=== PATIENT | male | born 1995 | race Caucasian/White ===

== ENCOUNTER 2020-04-08 12:16 | Emergency (ER) | payer OTHER ==
[~2020-04-08] VITALS: Ht 172.7 cm; Wt 86.4 kg
[2020-04-08 13:10] LABS: BASO % 0.1 % (0.0-1.0); EOS # 0.1 10^3/uL (0.0-0.5); EOS % 0.6 % (0.0-3.0); HEMATOCRIT 42.8 % (42.0-52.0); HEMOGLOBIN 14.4 g/dl (13.5-17.5); LYMPH # 2.5 10^3/uL (1.5-5.0); LYMPH % 31.4 % (24.0-44.0); MEAN CORPUSCULAR HEMOGLOBIN 28.2 pg (27.0-33.0); MEAN CORPUSCULAR HGB CONC 33.6 g/dl (32.0-36.5); MEAN CORPUSCULAR VOLUME 83.9 fl (80.0-96.0); MONO # 0.5 10^3/uL (0.0-0.8); MONO % 6.5 % (0.0-5.0); NEUTROPHILS # 4.8 10^3/uL (1.5-8.5); PLATELET COUNT, AUTOMATED 212 10^3/uL (150-450); WHITE BLOOD COUNT 7.8 10^3/uL (4.0-10.0)
[2020-04-08] MEDS ORDERED: ISOVUE-370 76% 100ML VIAL As Ordered ONE (13:11)
[2020-04-08 13:45] LABS: ALT/SGPT 38 U/L (12-78); BILIRUBIN,DIRECT 0.2 MG/DL (0.0-0.2); BILIRUBIN,TOTAL 0.4 MG/DL (0.2-1.0); BLOOD UREA NITROGEN 11 MG/DL (7-18); CALCIUM LEVEL 9.1 MG/DL (8.5-10.1); CARBON DIOXIDE LEVEL 25 MEQ/L (21-32); CHLORIDE LEVEL 108 MEQ/L (98-107); CK-MB VALUE MASS 1.6 NG/ML (<3.6); CPK CREATINE PHOSPHOKINASE 361 U/L (39-308); CREATININE FOR GFR 1.13 MG/DL (0.70-1.30); GLOMERULAR FILTRATION RATE > 60.0 (>60); GLUCOSE, FASTING 92 MG/DL (70-100); MB/CK RELATIVE INDEX 0.44 (< OR =4); NT-PRO BNP 62 PG/ML (<125); POTASSIUM SERUM 3.4 MEQ/L (3.5-5.1); SODIUM LEVEL 139 MEQ/L (136-145); THYROID STIMULATING HORMONE 0.897 uIU/ML (0.358-3.740); THYROXINE (T4) 9.4 UG/DL (4.5-12.0); TOTAL PROTEIN 7.6 GM/DL (6.4-8.2); TROPONIN I 0.09 NG/ML (< 0.10)
--- NOTE | 2020-04-08 14:28 | REPVR ---
PROCEDURE INFORMATION: Exam: CT Angiography Chest With Contrast Exam date and time: 04/08/2020 2:08 PM Age: 24 years old Clinical indication: Chest pain; Type not specified; Additional info: Cp R/O pe TECHNIQUE: Imaging protocol: Computed tomographic angiography of the chest with intravenous contrast. 3D rendering (Not supervised by radiologist): MIP and/or 3D reconstructed images were created by the technologist. Radiation optimization: All CT scans at this facility use at least one of these dose optimization techniques: automated exposure control; mA and/or kV adjustment per patient size (includes targeted exams where dose is matched to clinical indication); or iterative reconstruction. Contrast material: ISOVUE 370; Contrast volume: 75 ml; Contrast route: INTRAVENOUS (IV); COMPARISON: No relevant prior studies available. FINDINGS: Pulmonary arteries: Normal. No pulmonary emboli. Aorta: No aortic aneurysm. No aortic dissection. Thyroid: The partially imaged bilateral thyroid lobes are unremarkable. Lungs: A 5.7 mm noncalcified pulmonary nodule is noted in the posterior segment of the right upper lobe (LOC 19.85). Right middle lobe and left lower lobe calcified pulmonary parenchymal granulomas. Pleural space: No pneumothorax. No pleural effusion. Heart: Normal. No pericardial effusion. Lymph nodes: No enlarged lymph nodes. Bones/joints: Unremarkable. No acute fracture. Soft tissues: Mild left gynecomastia. IMPRESSION: 1. No pulmonary embolism identified. 2. No thoracic aortic aneurysm or dissection identified. 3. Noncalcified right upper lobe pulmonary nodule. Fleischner Society recommendations not given due to patient age less than 35. Electronically signed by: Phillip Castano On 04/08/2020 14:28:23 PM
[2020-04-08 16:25] LABS: CK-MB VALUE MASS 1.4 NG/ML (<3.6); MB/CK RELATIVE INDEX 0.42 (< OR =4); TROPONIN I 0.08 NG/ML (< 0.10)
[2020-04-08 17:15] VITALS: BP 138/80
--- NOTE | 2020-04-10 13:53 | ED PDOC ---
Post-Departure Follow-Up iza faith faxed formal report of cta chest for fu Marcel Lynn MD Apr 10, 2020 13:53
--- NOTE | 2020-04-14 19:07 | ECGEPIP ---
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 RBBB SEE SCANNED DOWNTIME REPORT
--- NOTE | 2020-04-23 13:39 | ECGEPIP ---
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
== END 2020-04-08 17:26 | disposition home or self-care (01) ==
LOC: M ED 12:16
DX: R06.00 Dyspnea, unspecified (principal); R91.1 Solitary pulmonary nodule
CPT/HCPCS: 36415; 71275; 80047; 80048; 80076; 82550; 82553; 83880; 84436; 84443; 84484; 85025; 93005; 93041; 94760; 99284; Q9967

== ENCOUNTER 2021-01-31 12:03 | Emergency (ER) | payer OTHER ==
[~2021-01-31] VITALS: Ht 175.3 cm; Wt 92.6 kg
[2021-01-31] MEDS ORDERED: IBUP200C29 PO (12:11)
[2021-01-31 13:24] LABS: RSV AMPLIFICATION NEGATIVE (NEGATIVE)
[2021-01-31 14:36] LABS: BASO % 0.2 % (0.0-1.0); EOS % 0.2 % (0.0-3.0); HEMATOCRIT 45.9 % (42.0-52.0); HEMOGLOBIN 15.2 g/dl (13.5-17.5); LYMPH # 1.5 10^3/uL (1.5-5.0); LYMPH % 11.5 % (24.0-44.0); MEAN CORPUSCULAR HEMOGLOBIN 28.3 pg (27.0-33.0); MEAN CORPUSCULAR HGB CONC 33.1 g/dl (32.0-36.5); MEAN CORPUSCULAR VOLUME 85.5 fl (80.0-96.0); MONO # 1.4 10^3/uL (0.0-0.8); MONO % 10.5 % (2.0-8.0); NEUTROPHILS # 10.1 10^3/uL (1.5-8.5); NEUTROPHILS % 77.3 % (36.0-66.0); PLATELET COUNT, AUTOMATED 197 10^3/uL (150-450); RED BLOOD COUNT 5.37 10^6/uL (4.30-6.10); WHITE BLOOD COUNT 13.1 10^3/uL (4.0-10.0)
[2021-01-31 15:00] LABS: ALBUMIN 4.1 GM/DL (3.2-5.2); BILIRUBIN,DIRECT 0.4 MG/DL (0.0-0.2); BILIRUBIN,TOTAL 0.9 MG/DL (0.2-1.0); TOTAL PROTEIN 8.3 GM/DL (6.4-8.2)
[2021-01-31] MEDS ORDERED: ACETAMINOPHEN 325 MG TAB PO ONE (15:20)
[2021-01-31] MEDS ORDERED: ONDANSETRON 4MG/2ML VIAL IV ONE (15:50)
[2021-01-31] MEDS ORDERED: NS 1,000 ML IV ONE (15:50)
[2021-01-31 15:53] VITALS: BP 135/75
[2021-01-31 16:05] LABS: ACETAMINOPHEN LEVEL 4.8 UG/ML (10.0-30.0)
--- NOTE | 2021-01-31 16:21 | REP ---
INDICATION: unknown fever COMPARISON: None. TECHNIQUE: PA and lateral. FINDINGS: The mediastinum and cardiac silhouette are normal. The lung rey are clear and without acute consolidation, effusion, or pneumothorax. The skeletal structures are intact and normal. IMPRESSION: No acute cardiopulmonary process. <Electronically signed by Leonidas Alberto > 01/31/21 0851
[2021-01-31] MEDS ORDERED: ZOFR4TAB16 PO (17:12)
== END 2021-01-31 18:13 | disposition home or self-care (01) ==
LOC: M ED 12:03
DX: J02.9 Acute pharyngitis, unspecified (principal); B34.9 Viral infection, unspecified; R51.9 Headache, unspecified; R50.9 Fever, unspecified; F17.220 Nicotine dependence, chewing tobacco, uncomplicated
CPT/HCPCS: 71046; 80047; 80076; 80143; 81001; 85025; 87631; 87880; 96361; 96374; 99284; J2405

== ENCOUNTER 2021-05-22 13:43 | Emergency (ER) | payer OTHER ==
[~2021-05-22] VITALS: Ht 175.3 cm; Wt 96.4 kg
[~2021-05-22 13:43] MED LIST: IBUP200C29 PO; ZOFR4TAB16 PO
--- OUTSIDE RECORDS SUMMARY | 2021-05-22 13:51 | CCD ---
Author Author [facility] Organization [facility] Address Unknown Phone Unavailable Support Name Relationship Address Phone [facility] Next Of Kin [address] [place] [address] Unavailable SIVA FLETCHER Next Of Kin [address] [place], [place] [id number] SIVA FLETCHER [facility] [address] [facility] [address] [address] Unavailable Re-disclosure Warning The records that you are about to access may contain information from federally-assisted alcohol or drug abuse programs. If such information is present, then the following federally mandated warning applies: This information has been disclosed to you from records protected by federal confidentiality rules (42 CFR part 2). The federal rules prohibit you from making any further disclosure of this information unless further disclosure is expressly permitted by the written consent of the person to whom it pertains or as otherwise permitted by 42 CFR part 2. A general authorization for the release of medical or other information is NOT sufficient for this purpose. The Federal rules restrict any use of the information to criminally investigate or prosecute any alcohol or drug abuse patient.The records that you are about to access may contain highly sensitive health information, the redisclosure of which is protected by Article 27-F of the [facility] Public Health law. If you continue you may have access to information: Regarding HIV / AIDS; Provided by facilities licensed or operated by the [facility] Office of Mental Health; or Provided by the [facility] Office for People With Developmental Disabilities. If such information is present, then the following [facility] mandated warning applies: This information has been disclosed to you from confidential records which are protected by state law. State law prohibits you from making any further disclosure of this information without the specific written consent of the person to whom it pertains, or as otherwise permitted by law. Any unauthorized further disclosure in violation of state law may result in a fine or prison sentence or both. A general authorization for the release of medical or other information is NOT sufficient authorization for further disc losure. Immunizations Vaccine Date Status Description Data Source(s) COVID-19 VACCINE Pfizer 11/06/2020 12:00:00 AM EDT completed [facility] Vaccine Series Complete: NOThis Data was Submitted to [facility] Via [employer]. Medications No Information Insurance Providers Payer name Policy type / Coverage type Policy ID Covered libertarian ID Covered libertarian's relationship to thornton Policy Thornton Plan Information [facility] [employer] [id number] Problems, Conditions, and Diagnoses No Information Surgeries/Procedures No Information Results ID Date Data Source [id number] 01/31/2021 12:39:00 PM EDT [facility] Name Value Range Interpretation Code Description Data Renae rce(s) Supporting Document(s) SARS coronavirus 2 RNA [Presence] in Res piratory specimen by RUEL with probe detection NEGATIVE [facility] This lab was ordered by [facility] a nd reported by [facility]. Procedure Social History No Information
[2021-05-22 16:58] LABS: BASO % 0.3 % (0.0-1.0); EOS % 0.3 % (0.0-3.0); HEMATOCRIT 47.6 % (42.0-52.0); HEMOGLOBIN 15.8 g/dl (13.5-17.5); LYMPH # 1.7 10^3/uL (1.5-5.0); LYMPH % 24.7 % (24.0-44.0); MEAN CORPUSCULAR HEMOGLOBIN 28.7 pg (27.0-33.0); MEAN CORPUSCULAR HGB CONC 33.2 g/dl (32.0-36.5); MEAN CORPUSCULAR VOLUME 86.4 fl (80.0-96.0); MONO # 0.9 10^3/uL (0.0-0.8); MONO % 12.4 % (2.0-8.0); NEUTROPHILS # 4.3 10^3/uL (1.5-8.5); NEUTROPHILS % 62.2 % (36.0-66.0); PLATELET COUNT, AUTOMATED 169 10^3/uL (150-450); RED BLOOD COUNT 5.51 10^6/uL (4.30-6.10)
[2021-05-22 17:22] LABS: MONO SCRN NEGATIVE (NEGATIVE)
[2021-05-22] MEDS ORDERED: CEPH500C PO (17:35)
[2021-05-22] MEDS ORDERED: CEPHALEXIN 500 MG CAP PO ONE (17:35)
--- OUTSIDE RECORDS SUMMARY | 2021-05-22 17:45 | CCD ---
Author Author [facility] Organization [facility] Address Unknown Phone Unavailable Support Name Relationship Address Phone [facility] Next Of Kin [address] [place] [address] Unavailable SIVA FLETCHER Next Of Kin [address] [place], [place] [id number] SIVA FLETCHER [facility] [id number] [facility] [address] [place] [address] Unavailable Re-disclosure Warning The records that you [...] is protected by Article 27-F of the [facility] Public Health law. If you continue you may have access to information: Regarding HIV / AIDS; Provided by facilities licensed or operated by the [facility] Office of Mental Health; or Provided by the [facility] Office for People With Developmental Disabilities. If such information is present, then the following [facility] mandated warning applies: This information has [...] law may result in a fine or nursing home sentence or both. A general authorization for the release of medical or other information is NOT sufficient authorization for further disc losure. Immunizations Vaccine Date Status Description Data Source(s) COVID-19 VACCINE Pfizer 11/06/2020 12:00:00 AM EDT completed [facility] Vaccine Series Complete: NOThis Data was Submitted to [facility] Via [employer]. Medications No Information Insurance Providers Payer name Policy type / Coverage type Policy ID Covered alliance party ID Covered alliance party's relationship to thornton Policy [place] Plan Information [facility] [employer] [id number] Problems, Conditions, and Diagnoses No Information Surgeries/Procedures No Information Results ID Date Data Source [id number] 01/31/2021 12:39:00 PM EDT [facility] Name Value Range Interpretation Code Description Data Reane rce(s) Supporting Document(s) SARS coronavirus 2 RNA [Presence] in Res piratory specimen by RUEL with probe detection NEGATIVE [facility] This lab was ordered by [facility] a nd reported by [facility]. Procedure Social History No Information
[2021-05-22 17:50] VITALS: BP 139/87
== END 2021-05-22 18:37 | disposition home or self-care (01) ==
LOC: M ED 13:43
DX: J02.9 Acute pharyngitis, unspecified (principal); R50.9 Fever, unspecified; R51.9 Headache, unspecified

== ENCOUNTER → 2021-07-05 | Outpatient (REF) ==
[~2021-07-05] MED LIST changes: +CEPH500C PO
--- NOTE | 2021-07-06 02:37 | REP ---
INDICATION: ENCNTR FOR SUPRVSN OF NORMAL PREG, UNSP, FIRST TRIMESTER COMPARISON: 01/31/2021 TECHNIQUE: PA and lateral. FINDINGS: The mediastinum and cardiac silhouette are normal. The lung rey are clear and without acute consolidation, effusion, or pneumothorax. The skeletal structures are intact and normal. IMPRESSION: No acute cardiopulmonary process. <Electronically signed by Leonidas Alberto > 07/06/21 [id number]
--- NOTE | 2021-07-06 02:42 | REP ---
INDICATION: ENCNTR FOR SUPRVSN OF NORMAL PREG, UNSP, FIRST TRIMESTER COMPARISON: None. TECHNIQUE: AP and lateral views of the right knee FINDINGS: Evidence for prior orthopedic surgical intervention. Fixation screw is identified in the region of the proximal tibial metadiaphysis and evidence for prior tunnels within the distal femur and tibial metaphysis noted. The tibiofemoral and patellofemoral joint spaces appear relatively normal. No obvious significant chondrocalcinosis, osteophytosis or joint effusion is appreciated. IMPRESSION: Evidence for prior surgical intervention. No significant degenerative changes by radiographic evaluation. <Electronically signed by Leonidas Alberto > 07/06/21 2445
== END ==
LOC: M PLAIMG 14:26
PROVIDERS: ATTEND Internal Medicine
DX: R06.02 Shortness of breath (principal); M25.561 Pain in right knee